=== PATIENT | female | born 1990 | race Hispanic/Latino ===

== ENCOUNTER 2017-11-18 17:19 | Emergency (ER) | payer OTHER ==
[2017-11-18 17:25] VITALS: RESP 16; TEMP 98.1; O2SAT 99
[2017-11-18] MEDS ORDERED: Sodium Chloride 0.9% 1,000 ML IV STA (17:41)
[2017-11-18] MEDS ORDERED: Dexamethasone 10 MG in Sodium Chloride 0.9% 50 ML IVP STA (17:41)
--- NOTE | 2017-11-18 18:09 | ED PDOC ---
HPI: CCC, URI, Sore Throat Time Seen by Provider: 11/18/17 17:29 Chief Complaint (Nursing): ENT Problem Chief Complaint (Provider): ENT Problem History Per: Patient History/Exam Limitations: no limitations Onset/Duration Of Symptoms: Days (x4) Additional Complaint(s): Patient is a 27 y/o female who presents to the ED complaining of left sided sore throat, onset x4 days ago. Patient states she was seen at urgent care and they had a Strep done which turned out to be negative. She was prescribed Amoxicillin pending throat culture results. She reports that she has been taking motrin with no rlief and swelling has worsened. 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 She also developed a fever with a Tmax of 103. Patient states she took her last Motrin at 14:30. She denies cough, congestion, rash, shortness of breath, and drooling. Past Medical History Reviewed: Historical Data, Nursing Documentation, Vital Signs Vital Signs: Last Vital Signs Temp 98.1 F 11/18/17 17:22 Pulse 78 11/18/17 23:19 Resp 16 11/18/17 23:19 BP 124/72 11/18/17 23:19 Pulse Ox 99 11/18/17 23:19 - Medical History PMH: No Chronic Diseases - Family History Family History: States: Unknown Family Hx - Home Medications Home Medications: Ambulatory Orders Medication Instructions Recorded Amoxicillin/Potassium Clav 1 tab PO BID #20 tab 11/18/17 [Augmentin 500 mg-125 mg] - Allergies Allergies/Adverse Reactions: Allergies Allergy/AdvReac Type Severity Reaction Status Date / Time No Known Allergies Allergy Verified 11/18/17 17:22 Review of Systems ROS Statement: Except As Marked, All Systems Reviewed And Found Negative Review Of Systems: ROS cannot be obtained secondary to pt's inabilty to answer questions. Constitutional: Positive for: Fever ENT: Negative for: Nose Congestion Respiratory: Negative for: Cough, Shortness of Breath Skin: Negative for: Rash Neurological: Negative for: Other (drooling) Physical Exam - Reviewed Nursing Documentation Reviewed: Yes Vital Signs Reviewed: Yes - Physical Exam Appears: Positive for: Non-toxic, No Acute Distress (patient is speaking full sentences) Skin: Positive for: Normal Color, Warm, Dry Eye Exam: Positive for: EOMI, Normal appearance, PERRL ENT: Positive for: Tonsillar Exudate (bilateral), Tonsillar Swelling (left sided ), Other (Uvular swelling; no drooling, no trismus, muffled voice noted) Respiratory: Positive for: Normal Breath Sounds. Negative for: Stridor, Respiratory Distress Neurologic/Psych: Positive for: Alert, Oriented (x3). Negative for: Motor/ Sensory Deficits, Aphasia - Laboratory Results Result Diagrams: 11/18/17 18:24 11/18/17 18:24 - ECG O2 Sat by Pulse Oximetry: 99 (RA) Pulse Ox Interpretation: Normal Medical Decision Making Medical Decision Making: Time: 17:40 Impression: Sore throat Initial plan: --Type and screen --CT neck --CMP --CBC w/ diff --PTT --PT/INR --Decadron --Unasyn --Blood culture --Rapid strep group Time: 20:59 CT Neck FINDINGS: Oropharynx: The left palatine tonsil is enlarged with an ill-defined area of low density measuring approximately 13 x 21 x 13 mm centrally consistent with developing abscess. Hypopharynx: Unremarkable. Larynx: Unremarkable. Normal epiglottis. Trachea: Unremarkable. Retropharyngeal space: Minimal fluid in the retropharyngeal space at the C3 level. Submandibular/parotid glands: Unremarkable. Glands are normal in size. Thyroid: Unremarkable. No enlarged or calcified nodules. Bones/joints: Normal alignment. No acute fracture. Soft tissues: Unremarkable. Vasculature: No acute findings. Lymph nodes: Mild bilateral cervical adenopathy. Lung apices: Unremarkable as visualized. IMPRESSION: Left tonsillar abscess, with mild retropharyngeal fluid/abscess. Time: 21:[address] results discussed with Dr. Ferrer, ENT on-call, who will come to ED and perform drainage of abscess. 2244 Dr. Ferrer performed drainage in ED and requests pt. to be dc'd with Augmentin Rx. On re-evaluation, pt. reports feeling much better. Denies difficulty breathing or active bleeding. Advised to f/u with Dr. Ferrer and to return to ED immediately if symptoms return or any other concerns arise. Scribe Attestation: Documented by Rafa Hayes, acting as a scribe for Jose Cruz Zimmerman PA-C. Provider Scribe Attestation: All medical record entries made by the scribe were at my direction and personally dictated by me. I have reviewed the chart and agree that the record accurately reflects my personal performance of the history, physical exam, medical decision making, and the department course for this patient. I have also personally directed, reviewed, and agree with the discharge instructions and disposition. Disposition - Clinical Impression Clinical Impression: Tonsillar abscess - Patient ED Disposition Is Patient to be Admitted: No - Disposition Referrals: Tad Ferrer MD [Staff Provider] - [facility] [Outside] Disposition: Routine/Home Disposition Time: 22:48 Condition: IMPROVED Additional Instructions: SHAVON WHYTE, thank you for letting us take care of you today. Your provider was Daniela Colón MD and you were treated for ONE CHECK. The emergency medical care you received today was directed at your acute symptoms. If you were prescribed any medication, please fill it and take as directed. It may take several days for your symptoms to resolve. Return to the Emergency Department if your symptoms worsen, do not improve, or if you have any other problems. Please contact your doctor or call one of the physicians/clinics you have been referred to that are listed on the Patient Visit Information form that is included in your discharge packet. Bring any paperwork you were given at discharge with you along with any medications you are taking to your follow up visit. Our treatment cannot replace ongoing medical care by a primary care provider outside of the emergency department. Thank you for allowing the [facility] team to be part of your care today. If you had an X-Ray or CT scan: A Radiologist will review the ED reading if any change in treatment is needed we will contact you. If you had a blood, urine, or wound culture: It will take several days for the results, if any change in treatment is needed we will contact you. If you had an STI test: It will take 48 hours for the results. Please call after 1 week if you have not heard back. Prescriptions: Amoxicillin/Potassium Clav [Augmentin 500 mg-125 mg] 1 tab PO BID #20 tab Instructions: Peritonsillar Abscess, Adult (DC) Forms: Rayn (Palauan), [facility] ED School/Work Excuse Print Language: CAMEROONIAN
[2017-11-18 18:34] LABS: BASO % 0.2 % (0.0-2.0); EOS # 0.2 K/uL (0.0-0.7); EOS % 1.5 % (0.0-4.0); HEMOGLOBIN 11.1 g/dL (12.0-16.0); LYMPH # 2.2 K/uL (1.0-4.3); MEAN CELL VOLUME 90.3 fl (81.0-99.0); MEAN CORPUSCULAR HEMOGLOBIN 30.4 pg (27.0-31.0); MEAN CORPUSCULAR HGB CONC 33.7 g/dL (33.0-37.0); MEAN PLATELET VOLUME 8.6 fl (7.2-11.7); MONO # 1.5 K/uL (0.0-0.8); NEUT # 9.9 K/uL (1.8-7.0); NEUT % 71.3 % (50.0-75.0); NRBC % 0.1 % (0.0-0.0); RBC 3.65 Mil/uL (3.80-5.20); WHITE BLOOD COUNT 13.9 K/uL (4.8-10.8)
[2017-11-18 18:35] LABS: INR 1.2; PROTHROMBIN TIME 13.4 Seconds (9.8-13.1)
[2017-11-18 18:38] LABS: PARTIAL THROMBOPLASTIN TIME 33.8 Seconds (25.6-37.1)
[2017-11-18 18:52] LABS: ALB/GLOB RATIO 1.3 (1.0-2.1); ALBUMIN 4.6 g/dL (3.5-5.0); ALT/SGPT 34 U/L (9-52); AST/SGOT 29 U/L (14-36); BLOOD UREA NITROGEN 6 mg/dl (7-17); CALCIUM 9.5 mg/dL (8.4-10.2); GFR AFRICAN-AMERICAN > 60; GFR NON-AFRICAN AMERICAN > 60
[2017-11-18] MEDS ORDERED: Iohexol 300 100 ML IJ ONE (19:28)
[2017-11-18] MEDS ORDERED: Sodium Chloride 0.9% 50 ML IV ONE (19:28)
[2017-11-18] MEDS ORDERED: Lidocaine 2% w Epi 1:100,000 Inj IJ ONE (21:34)
[2017-11-18 23:20] VITALS: BP 124/72; PULSE 78
--- NOTE | 2017-11-19 07:09 | OP ---
Copied To: Tad Ferrer MD Attending MD: Tad Ferrer MD PROCEDURE DATE: 11/18/2017 SURGEON: Tad Ferrer MD PREOPERATIVE DIAGNOSIS: Left peritonsillar abscess. POSTOPERATIVE DIAGNOSIS: Left peritonsillar abscess. SIGNIFICANT FINDINGS: Left peritonsillar abscess. DESCRIPTION OF PROCEDURE: The patient was placed in the seated position. The left peritonsillar area was injected with lidocaine with epinephrine. A #11 blade was used to make an incision in the left peritonsillar area, clamped, and dissection was done. Pus was noted to be coming out. Clamp was used to break up all possible loculations. Bleeding was controlled with time. The patient tolerated the procedure well. Tad Ferrer MD
--- NOTE | 2017-11-19 09:28 | CT ---
Date of service: 11/18/2017 PROCEDURE: CT NECK WITH CONTRAST HISTORY: L sided sore throat with tonsillar swelling COMPARISON: None available. TECHNIQUE: CT of the neck with intravenous contrast. Coronal and sagittal reformats generated. Intravenous contrast dose: 95 mL Omnipaque 300 Radiation dose: DLP 221.97 mGy-cm This CT exam was performed using one or more of the following dose reduction techniques: Automated exposure control, adjustment of the mA and/or kV according to patient size, and/or use of iterative reconstruction technique. FINDINGS: NASOPHARYNX: Unremarkable. SUPRAHYOID NECK: There is enlargement of the left palatine tonsil. It is heterogeneous in attenuation without evidence of discrete collection or abscess. There is a low density is centrally which may represent developing phlegmon. There is mass-effect upon the pharynx as a result of this left-sided tonsillar enlargement. The adenoidal tonsils are unremarkable. The lingual tonsils are unremarkable. INFRAHYOID NECK: Unremarkable larynx, hypopharynx, and supraglottic space. Vocal cords intact. Asymmetric effacement of the left piriform sinus due to the left palatine tonsillar enlargement. MASS: None. GLANDS: Parotid and submandibular glands unremarkable. Normal size thyroid gland, without nodule. LYMPH NODES: Shotty level 1, 2 and 3 lymph nodes, less than 1.5 cm short axis. Likely reactive. CERVICAL SPINE: No fracture or focal lesion. VASCULAR STRUCTURES: Unremarkable. OTHER FINDINGS: None. IMPRESSION: Infection of left palatine tonsil without evidence of darwin abscess. Possible early phlegmonous change. Mass-effect upon the pharynx with displacement towards the right. No other significant abnormality. The preliminary findings for this examination were reported by [facility] at 8:59 p.m. on 11/18/2017.. There is discordant of this report with the preliminary findings. No darwin abscess is appreciated at this time.
== END 2017-11-18 23:20 | disposition home or self-care (01) ==
LOC: H.ER 17:19
DX: J36 Peritonsillar abscess (principal)
CPT/HCPCS: 70491; 80053; 81025; 85025; 85610; 85730; 86308; 86850; 86900; 87040; 87070; 87430; 96360; 96365; 96374; 99283; J0295; J1100; J7030; Q9967